=== PATIENT | female | born 1975 | race African-American/Black ===

== ENCOUNTER 2021-01-30 04:45 | Emergency (ER) | payer MEDICAID ==
[~2021-01-30] VITALS: Ht 175.3 cm; Wt 87.0 kg
[2021-01-30] MEDS ORDERED: PIPERACILLIN/TAZ 3.375G PREMIX 50 ML IV ONE (06:30)
[2021-01-30] MEDS ORDERED: KETOROLAC 30MG/ML VIAL IV STA (06:30)
[2021-01-30] MEDS ORDERED: VANCOMYCIN 1 G PREMIX 200 ML IV ONE (06:30)
[2021-01-30 08:55] LABS: BASOPHILS % 0.4 % (0.0-2.0); EOSINOPHILS % 0.5 % (0.0-5.0); HEMATOCRIT. 36.3 % (36.0-48.0); HEMOGLOBIN. 11.9 g/dL (12.0-16.0); LYMPHOCYTES % 14.5 % (20.0-50.0); MEAN CORPUSCULAR HEMOGLOBIN 29.8 pg (28.0-32.0); MEAN CORPUSCULAR VOLUME 90.9 fL (81.0-99.0); MEAN PLATELET VOLUME 7.7 fl (7.4-10.4); NEUTROPHILS % 76.6 % (40.0-76.0); PLATELET 376 x1000/uL (130-400); RED BLOOD CELL COUNT 3.99 mill/uL (4.2-5.4); RED CELL DISTRIBUTION WIDTH 13.7 % (11.6-14.6)
[2021-01-30 09:00] LABS: CHLORIDE 111 mEq/L (98-107)
[2021-01-30 13:56] VITALS: BP 154/75
== END 2021-01-30 14:05 | disposition short-term general hospital (02) ==
LOC: ER 04:45
DX: L03.115 Cellulitis of right lower limb (principal); D64.9 Anemia, unspecified; J45.909 Unspecified asthma, uncomplicated; I10 Essential (primary) hypertension; Z98.890 Other specified postprocedural states; A49.02 Methicillin resistant Staphylococcus aureus infection, unspecified site
CPT/HCPCS: 36415; 73610; 73630; 80053; 85025; 85610; 87040; 87070; 87077; 87205; 96365; 96366; 96367; 96375; 99285; J1885; J2543; J3370; Z7610

== ENCOUNTER 2024-03-15 10:12 | Emergency (ER) | payer MEDICAID ==
[~2024-03-15] VITALS: Ht 167.6 cm; Wt 77.1 kg
[2024-03-15 10:14] VITALS: BP 143/74; PULSE 89; RESP 12; TEMP 98.2; O2SAT 94; O2SAT 99
[2024-03-15 11:48] LABS: CLARITY URINE CLEAR (CLEAR); COLOR URINE YELLOW (YELLOW); GLUCOSE URINE NEGATIVE (NEGATIVE); KETONES URINE NEGATIVE (NEGATIVE); LEUKOCYTE ESTERASE URINE NEGATIVE (NEGATIVE); NITRITE URINE NEGATIVE (NEGATIVE); OCCULT BLOOD URINE NEGATIVE (NEGATIVE); PROTEIN URINE NEGATIVE (NEGATIVE); SPECIFIC GRAVITY URINE 1.028 (1.005-1.030)
== END 2024-03-15 12:10 | disposition home or self-care (01) ==
LOC: ER 10:12
DX: M25.461 Effusion, right knee (principal); E11.9 Type 2 diabetes mellitus without complications; I10 Essential (primary) hypertension; J45.909 Unspecified asthma, uncomplicated; Z87.442 Personal history of urinary calculi; Z98.890 Other specified postprocedural states
CPT/HCPCS: 73560; 81003; 99284

== ENCOUNTER 2024-04-22 11:52 | Emergency (ER) | payer MEDICAID, OTHER ==
[~2024-04-22] VITALS: Ht 170.2 cm; Wt 89.0 kg
[2024-04-22 12:08] VITALS: O2SAT 99
[2024-04-22 12:43] VITALS: BP 139/79; PULSE 74; RESP 12; TEMP 98.8; O2SAT 97
[2024-04-22] MEDS ORDERED: ACETAMINOPHEN 325MG TABLET PO ONE (15:30)
[2024-04-22] MEDS ORDERED: IBUP-2029 MT (16:46)
[2024-04-22] MEDS ORDERED: ACETAMINOPHEN 325MG TABLET PO NR (17:15)
== END 2024-04-22 17:52 | disposition home or self-care (01) ==
LOC: ER 11:52
DX: M47.22 Other spondylosis with radiculopathy, cervical region (principal); I10 Essential (primary) hypertension; E11.9 Type 2 diabetes mellitus without complications
CPT/HCPCS: 72050; 99283